=== PATIENT | female | born 2005 | race Caucasian/White ===

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

== ENCOUNTER 2025-01-16 17:48 | Emergency (ER) | payer OTHER ==
[~2025-01-16] VITALS: Ht 182.9 cm; Wt 113.4 kg
[~2025-01-16 17:48] MED LIST: CRUTCH1 EACH; NORCO 5-325 TA1 EACH PO
[2025-01-16 18:32] LABS: BASOPHILS 0.4 % (0-2); BILIRUBIN, URINE NEGATIVE (negative); BLOOD/HGB, URINE LARGE (Negative); EOSINOPHILS 1.6 % (0-6); HEMATOCRIT 32.9 % (35.0-50.0); HEMOGLOBIN 11.8 g/dL (12.0-18.0); KETONE, URINE NEGATIVE (Negative); LEUK ESTERASE, URINE NEGATIVE (negative); MCH 33.1 (27-36); MCHC 35.9 g/dl (30-36); MCV 92.3 fl (81-99); MONOCYTES 6.9 % (0-12); NEUTROPHILS 65.1 % (39-80); NITRITE, URINE NEGATIVE (negative); PLATELET COUNT 271 K/uL (140-440); RBC 3.57 M/ul (4.3-5.7); RDW 12.8 (10.5-15.0)
[2025-01-16 18:40] LABS: BACTERIA, URINE NONE SEEN /hpf (negative); CASTS, URINE NONE SEEN \\lpf; COLLECTION TYPE, URINE CLEAN CATCH; CRYSTALS, URINE NONE SEEN (0-1+); EPITHELIAL CELLS, URINE SQUAMOUS 1+ /lpf (0-1+); REFLEX CULTURE, URINE No (No)
[2025-01-16 18:49] LABS: ALBUMIN 4.2 g/dL (3.4-5.0); ALBUMIN/GLOBULIN RATIO 1.31 (1.1-2.4); ANION GAP 14.3 (7-21); BILIRUBIN, TOTAL 0.5 mg/dL (0.2-1.0); BUN/CREATININE RATIO 8.79 (6.0-28.6); CALCIUM 9.1 mg/dL (8.5-10.1); CREATININE, SERUM 0.91 mg/dL (0.55-1.02); POTASSIUM 3.3 mmol/L (3.5-5.1); PROTEIN, TOTAL 7.4 g/dL (6.4-8.2)
[2025-01-16 18:55] LABS: ABO AB; RH POSITIVE
[2025-01-16] MEDS ORDERED: TRANEXAMIC ACID IN NACL,ISO-OS 1,000 MG/100 ML PIGGYBACK IV ONE (20:30)
[2025-01-16] MEDS ORDERED: TRANEXAMIC ACI650 MG PO (20:52)
[2025-01-16 21:09] VITALS: BP 119/72
== END 2025-01-16 21:14 | disposition home or self-care (01) ==
LOC: ED 17:48
PROVIDERS: Emergency Medicine
DX: N92.0 Excessive and frequent menstruation with regular cycle (principal)
CPT/HCPCS: 36415; 80053; 81001; 84703; 85025; 86900; 86901; 96374; 99284-25